=== PATIENT | male | born 1940 | race Caucasian/White ===

== ENCOUNTER 2016-08-14 07:00 | Outpatient (CLI) | payer MEDICARE, OTHER ==
[2016-08-14 07:32] LABS: BASOPHILS % 0.5 (0.0-1.5); EOSINOPHILS % 2.3 % (0.0-6.8); MEAN CORPUSCULAR HEMOGLOBIN 30.5 pg (28.0-34.0); MEAN CORPUSCULAR VOLUME 92.5 fl (80.0-100.0); NEUTROPHILS # 5.3 # k/uL (1.4-7.7)
[2016-08-14 07:56] LABS: eGFR (African) > 60; eGFR (Non-African) > 60
== END 2016-08-14 07:02 ==
LOC: LAB 07:00
PROVIDERS: ATTEND Family Medicine
DX: E03.9 Hypothyroidism, unspecified (principal); I10 Essential (primary) hypertension; E78.00 Pure hypercholesterolemia, unspecified
CPT/HCPCS: 36415; 80048; 80061; 84443; 85025

== ENCOUNTER 2016-11-04 07:01 | Outpatient (CLI) | payer MEDICARE, OTHER | END 2016-11-04 07:02 | LOC: LAB 07:01 | PROVIDERS: ATTEND Family Medicine | DX: E03.9 Hypothyroidism, unspecified (principal) | CPT/HCPCS: 36415; 84443 ==

== ENCOUNTER 2016-11-08 16:49 | Outpatient (CLI) | payer MEDICARE, OTHER | END 2016-11-08 16:50 | LOC: RT 16:49 | PROVIDERS: ATTEND Family Medicine | DX: I10 Essential (primary) hypertension (principal) ==

== ENCOUNTER 2018-01-07 15:55 | Outpatient (CLI) | payer MEDICARE, OTHER | END 2018-01-07 15:56 | LOC: CR 15:55 → RT 15:55 → CR 15:56 | PROVIDERS: ATTEND Family Medicine | DX: R00.0 Tachycardia, unspecified (principal) ==

== ENCOUNTER 2018-01-13 10:14 | Outpatient (CLI) | payer MEDICARE, OTHER | END 2018-01-13 10:15 | LOC: CARD 10:14 | PROVIDERS: ATTEND Internal Medicine Cardiovascular Disease | DX: I48.91 Unspecified atrial fibrillation (principal); I10 Essential (primary) hypertension; E78.5 Hyperlipidemia, unspecified | CPT/HCPCS: G0463 ==

== ENCOUNTER 2018-01-20 12:11 | Outpatient (CLI) | payer MEDICARE, OTHER | END 2018-01-20 12:13 | LOC: CARD 12:11 | PROVIDERS: ATTEND Internal Medicine Cardiovascular Disease | DX: I48.91 Unspecified atrial fibrillation (principal) ==

== ENCOUNTER 2018-01-21 07:10 | Outpatient (CLI) | payer MEDICARE, OTHER ==
[2018-01-21 09:39] LABS: eGFR (Non-African) 52
[2018-01-21 16:21] LABS: BASO % 0.8 % (0.0-1.5); EOS % 2.7 % (0.0-6.8); LYMPH ABS # 1.23 thou/uL (0.60-4.00); MCH. 29.3 pg (28.0-34.0); MCV 91.3 fL (80.0-100.0); MONOCYTE % 6.3 % (0.0-11.0); PLATELET COUNT 328 thou/uL (130-400)
== END 2018-01-21 07:11 ==
LOC: LAB 07:10
PROVIDERS: ATTEND Family Medicine
DX: I10 Essential (primary) hypertension (principal); E78.00 Pure hypercholesterolemia, unspecified; E03.9 Hypothyroidism, unspecified
CPT/HCPCS: 36415; 80053; 80061; 84443; 85025

== ENCOUNTER 2019-03-18 10:20 | Emergency (ER) | payer OTHER ==
--- NOTE | 2019-03-18 10:27 | ED Physician Documentation ---
Fall - HISTORIAN Historian: patient - HPI Stated Complaint: fall and hurt his shoulder Chief Complaint: Fall Onset: just prior to arrival Where: work Context: tripped (over a dog ) r: mild Associated Symptoms:: no loss of consciousness Location of Pain/Injury: R shoulder Injury to Right Extremity: shoulder Injury to Left Extremity: none Further Comments: yes (he states he fell back over a dog and initally had some pain when he would move his neck but now no neck pain. He denies any shoulder pain but states he feels that is where he fell. He has two open areas on his right foream and elbow although no pain in those areas. He had no LOC and he has had no OTC meds for pain) - ROS CONST: no problems NEURO: denies: dizziness MS/SKIN/LYMPH: denies: weakness EYES/ENT: none CVS/RESP: none - PAST HX Past History: none Immunizations: UTD Allergies/Adverse Reactions: Allergies Allergy/AdvReac Type Severity Reaction Status Date / Time No Known Drug Allergies Allergy Verified 03/18/19 10:39 - SOCIAL HX Smoking History: non-smoker Alcohol Use: none Drug Use: none - FAMILY HX Family History: none - REVIEWED ASSESSMENTS Nursing Assessment Reviewed: Yes Vitals Reviewed: Yes Fall Physical Exam - Physical Exam General Appearance: no acute distress, alert Head: non-tender, no swelling, no obvious injury Neck: non-tender, painless ROM Eye: [place] ENT: nml external inspection Resp/CVS: chest non-tender, no ecchymosis, breath sounds nml, no resp. distress, heart sounds nml. No: rib tenderness Abdomen: soft, non-tender Neuro: oriented x3, CN's nml as tested, sensation nml, motor nml, mood/affect nml, roll carrier nml, reflexes nml Skin: color nml, other (small skin tear on right elbow and 3 cm open skin tear on right forearm. No pain with palpation ) Back: normal inspection Extremities: atraumatic Joint: joints nml, Nml gait/weight bearing. No: limited ROM - Inessa Coma Score Eyes Open: Spontaneous Speech: Oriented Motor: Obeys Commands Discharge Clincal Impression: Fall Qualifiers: Encounter type: initial encounter Qualified Code(s): W19.XXXA - Unspecified fall, initial encounter Referrals: Clifford Cota MD [Primary Care Provider] - 2 Days Comments: 1. OTC meds as directed as needed for pain 2. Ice for pain relief 3. Follow up with PCP in 2-4 days 4. Return to ER for any increased concerns Condition: Stable Disposition: 01 HOME, SELF-CARE Decision to Admit: NO Date of Decison to Admit: 03/18/19 Decision Time: 11:48
--- NOTE | 2019-03-18 11:45 | Diagnostic Imaging Report ---
PATIENT MR#: [id number] PATIENT PATIENT NAME: PADDY BARRETO DATE OF : 1940 REFERRING PHYSICIAN: Rosario Green EXAM DATE: 03/18/2019 ACCESSION NUMBER: [id number] EXAM DESCRIPTION: SHOULDER 2 VIEWS OR MORE Exam: Right scapula 4 views Indication: REASON: PAIN AFTER FALL HISTORY: PT STATES FELL OVER DOG AND LANDED ON RT SHOULDER/ARM. P AIN HAS SUBSIDED (Hx) / Note time : 03/18/2019 11:32:21 AM User : Soumya Ford REASON: PAIN AFTER FALL HISTORY: PT STATES FELL OVER DOG AND LANDED ON RT SHOULDER/ARM. PAIN HAS SUBS IDED (DICOM Hx) (DICOM Hx) Findings: No acute fracture, subluxation, dislocation or other osseous abnormality is identified. If clinical symptoms persist follow up examination may be warranted to exclude an occult process. Impression: No acute osseous abnormality. Read by: Dr. Karl Diaz Transcribed by: Transcribed Date: Electronically signed by: Dr. Karl Diaz Date signed: 03/18/2019 11:44:01 AM
[2019-03-18 12:01] VITALS: BP 136/71
== END 2019-03-18 11:54 | disposition home or self-care (01) ==
LOC: ED 10:20
DX: M25.511 Pain in right shoulder (principal); W01.0XXA Fall on same level from slipping, tripping and stumbling without subsequent striking against object, initial encounter
CPT/HCPCS: 73030; 99282